=== PATIENT | male | born 1980 | race Caucasian/White ===

== ENCOUNTER 2022-02-05 09:33 | Emergency (ER) | payer OTHER ==
[~2022-02-05] VITALS: Ht 182.8 cm; Wt 88.5 kg
[~2022-02-05 09:33] MED LIST: ANAPROX DS550 MG PO; BACTRIM DS 8001 TA1 PO; BACTROBAN CREAM15 GM T; CLINDAMYCIN HC300 MG PO; FLEXERIL10 MG PO; HYDROCODONE BIT1 T11 PO; KEFLEX500 M1 PO; MOTRIN800 MG PO; NILSTAT,MY500000 UN/ PO; PENICILLIN VK500 MG PO; TESSALON PERLE100 M1 PO; VICODIN 500 MG-1 TAB PO; ZITHROMAX Z PA250 MG PO
[2022-02-05] MEDS ORDERED: PREDNISONE50 MG PO (11:15)
== END 2022-02-05 10:26 | disposition home or self-care (01) ==
LOC: ED 09:33
DX: T63.444A Toxic effect of venom of bees, undetermined, initial encounter (principal); Z90.49 Acquired absence of other specified parts of digestive tract; Y92.89 Other specified places as the place of occurrence of the external cause